=== PATIENT | female | born 1960 | race Caucasian/White ===

== ENCOUNTER 2018-04-27 12:36 | Emergency (ER) | payer OTHER ==
[~2018-04-27] VITALS: Ht 154.9 cm; Wt 59.4 kg
--- NOTE | 2018-04-27 12:36 | NUR ---
PATIENT BIBA TO BED 6 AT THIS TIME.
[2018-04-27 12:39] VITALS: BP 141/84
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
[2018-04-27] MEDS ORDERED: KETOROLAC 60 MG/2 ML VIAL IM ONE (14:00)
--- NOTE | 2018-04-27 14:20 | NUR ---
INCENTIVE SPIROMETRY EDUCATION PROVIDED BY ONEIDA/SHONNA
[2018-04-27 14:32] VITALS: BP 141/84
--- NOTE | 2018-04-27 14:32 | NUR ---
Patient discharged with v/s stable. Written and verbal after care instructions given and explained. Patient alert, oriented and verbalized understanding of instructions. Ambulatory with steady gait. All questions addressed prior to discharge. ID band removed. Patient advised to follow up with PMD. Rx of NORCO, MOTRIN given. Patient educated on indication of medication including possible reaction and side effects. Opportunity to ask questions provided and answered.
== END 2018-04-27 14:32 | disposition home or self-care (01) ==
LOC: MED 12:36
DX: S22.31XA Fracture of one rib, right side, initial encounter for closed fracture (principal); F17.200 Nicotine dependence, unspecified, uncomplicated; W50.0XXA Accidental hit or strike by another person, initial encounter; Y93.89 Activity, other specified; Y92.89 Other specified places as the place of occurrence of the external cause; Y99.8 Other external cause status
CPT/HCPCS: 71101; 96372; 99283; J1885